=== PATIENT | male | born 1995 | race Two or more races ===

== ENCOUNTER 2017-03-11 15:58 | Emergency (ER) | payer SELFPAY ==
[~2017-03-11] VITALS: Ht 190.5 cm; Wt 136.1 kg
== END 2017-03-11 17:50 | disposition home or self-care (01) ==
LOC: CED 15:58 → CFTX 15:58
DX: S23.3XXA Sprain of ligaments of thoracic spine, initial encounter (principal); J45.909 Unspecified asthma, uncomplicated; F17.210 Nicotine dependence, cigarettes, uncomplicated; V43.52XA Car driver injured in collision with other type car in traffic accident, initial encounter
CPT/HCPCS: 72072; 72100; 96372; 99283; J1885